=== PATIENT | male | born 1940 | race Two or more races ===

== ENCOUNTER 2022-05-04 22:29 | Inpatient (IN) | payer MEDICARE, BC ==
[~2022-05-04] VITALS: Ht 182.9 cm; Wt 70.3 kg
[2022-05-04] MEDS ORDERED: QUET50TA PO (22:43)
[2022-05-04] MEDS ORDERED: RIVA1PAT TD (22:43)
[2022-05-04] MEDS ORDERED: LEVO88TA5 PO (22:43)
--- NOTE | 2022-05-04 22:48 | NUR ---
Medically caleared by DEBBIE.
--- NOTE | 2022-05-04 23:05 | NUR ---
TRANSPORT TO THE [facility] BY [facility]IA [facility] WITH NO DISTRESS NOTED.
[2022-05-04 23:15] VITALS: BP 142/59
[2022-05-04 23:27] LABS: HEMATOCRIT 36.5 % (36.7-47.1); MEAN CORPUSCULAR HEMOGLOBIN 31.2 uug (23.8-33.4); MEAN CORPUSCULAR VOLUME 92.2 fL (73.0-96.2); PLATELET COUNT (AUTO) 174 K/uL (152-348)
[2022-05-04] MEDS ORDERED: MAGNESIUM HYDROXIDE 30 ML LIQUID UDC PO PRN (23:30)
[2022-05-04] MEDS ORDERED: ACETAMINOPHEN 325 MG TABLET PO PRN (23:30)
[2022-05-04] MEDS ORDERED: LORAZEPAM 0.5 MG TABLET PO PRN (23:30)
[2022-05-04] MEDS ORDERED: BLOOD SUGAR DIAGNOSTIC 1 EACH STRIP VI ONE (23:30)
[2022-05-04] MEDS ORDERED: MAG HYDROX/AL HYDROX/SIMETH 30 ML LIQUID UDC PO PRN (23:30)
[2022-05-04 23:38] LABS: ALANINE AMINOTRANSFERASE 16 U/L (16-63); ALKALINE PHOSPHATASE 69 U/L (50-136); ASPARTATE AMINOTRANSFERASE 15 U/L (15-37); BILIRUBIN,DIRECT 0.2 mg/dL (0.0-0.2); BILIRUBIN,TOTAL 0.7 mg/dL (0.2-1.0); CARBON DIOXIDE 26 mmol/L (21-32); CHLORIDE 109 mmol/L (98-107); CREATININE 1.6 mg/dL (0.6-1.3); GLUCOSE 96 mg/dL (74-106); POTASSIUM 3.4 mmol/L (3.5-5.1); TOTAL PROTEIN, SERUM 6.8 g/dL (6.4-8.2); UREA NITROGEN, BLOOD 25 mg/dL (7-18)
[2022-05-04 23:43] LABS: ETHANOL < 2 MG/DL (0-0)
[2022-05-04 23:44] LABS: ACETAMINOPHEN < 2.0 ug/mL (10-30)
[2022-05-04] MEDS: TEMAZEPAM 7.5 MG CAPSULE PO PRN (23:51)
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
--- NOTE | 2022-05-05 05:34 | NUR ---
GPS: Pt.is now awake,anxious and restless. Confused,disoriented and non-sensical. Reality re-orientation provided prn. Re-directed and re-assured frequently. Ativan 1mg PO given. Will monitor effectiveness of med. Safe environment provided.
[2022-05-05 07:12] LABS: *BILIRUBIN,URIN NEGATIVE (NEGATIVE); *BLOOD, URINE NEGATIVE (NEGATIVE); *CLARITY,URINE CLEAR (CLEAR); *COLOR,URINE YELLOW (YELLOW); *KETONES,URINE NEGATIVE (NEGATIVE); *UROBILINOGEN,URINE 0.2 E.U./dl (NORMAL); LEUKOCYTE ESTERASE ,URINE NEGATIVE (NEGATIVE); NITRITE, URINE NEGATIVE (NEGATIVE); UGLUCOSE NEGATIVE (NEGATIVE)
[2022-05-05] MEDS: LEVOTHYROXINE SODIUM 88 MCG TABLET PO SCH (07:21)
[2022-05-05 07:29] LABS: *AMPHETAMINE, URINE NEGATIVE (NEGATIVE); *CANNABINOID, URINE NEGATIVE (NEGATIVE); *COCCAINE, URINE NEGATIVE (NEGATIVE); *OPIATE, URINE NEGATIVE (NEGATIVE); *PHENCYCLIDINE SCREEN,URINE NEGATIVE (NEGATIVE)
[2022-05-05 07:36] LABS: ALANINE AMINOTRANSFERASE 20 U/L (16-63); ALKALINE PHOSPHATASE 71 U/L (50-136); ASPARTATE AMINOTRANSFERASE 17 U/L (15-37); BILIRUBIN,TOTAL 0.7 mg/dL (0.2-1.0); CARBON DIOXIDE 30 mmol/L (21-32); CHLORIDE 107 mmol/L (98-107); CREATININE 1.6 mg/dL (0.6-1.3); GLUCOSE 104 mg/dL (74-106); POTASSIUM 3.9 mmol/L (3.5-5.1); TOTAL PROTEIN, SERUM 7.1 g/dL (6.4-8.2); UREA NITROGEN, BLOOD 22 mg/dL (7-18)
[2022-05-05 07:53] VITALS: BP 158/85
[2022-05-05] MEDS: RIVASTIGMINE 4.6 MG PATCH TD SCH (08:16)
[2022-05-05] MEDS ORDERED: OLANZAPINE 10 MG VIAL IM ONE (10:45)
--- NOTE | 2022-05-05 11:00 | NUR ---
Patient became agitated, aggressive, threatening physical harm to self, others, and environment which could lead to injury, striking out at others. Patient tried to punch, bite, and push staff against the wall. Psychiatrist ordered Zyprexa 5 mg IM. Security was called and 4 people were necessary to administer medication, no force needed or applied, no injury. Reassurance given. Fall and safety precautions implemented.
[2022-05-05] MEDS: DIVALPROEX SPRINKLE 125 MG CAP.SPRINK PO SCH ×2 (12:42→17:04)
--- NOTE | 2022-05-05 13:59 | NUR ---
NOE initial discharge plan: Patient resides at [address] [place] [address]. [facility]E will continue to work with patient, family, and MD to ensure a safe and proper discharge plan.
--- NOTE | 2022-05-05 14:03 | NUR ---
Firearms Report: Quill Worker completed and submitted a [employer] firearms report for 5150 danger to self and danger to others certifications. A copy of report has been placed in patient chart.
--- NOTE | 2022-05-05 14:31 | NUR ---
Patient is confused, irritable, combative, uncooperative with nursing care, intrusive. Patient tries to elope from unit couple of times, tries to open the entrance and emergency doors. Patient tries to get in the nursing station, and does not follow directions. Patient strips his clothes and diapers off in the hallway. Patient gets aggressive when helped. Patient requires more than minimal assistance with ADL. Emotional support provided. Fall and safety precautions implemented.
[2022-05-05 17:06] VITALS: BP 103/59
[2022-05-05] MEDS: LORAZEPAM 1 MG TABLET PO PRN (19:43)
--- NOTE | 2022-05-05 20:30 | NUR ---
received patient in the hallway. He is noted pacing the hallway. he is A/O x 1 able to ambulate with steady gait. Patient noted forgetful. he is a poor historian. he constantly stand by the main double doors. he requires constant redirection and reality orientation. no aggressive or combative bx noted at this time, but he appears anxious. Ativan 1mg PO PRN was given for anxiety. he was also given PO fluids and snacks. ALL his needs are met. His V/S are stable, he is reassured for his safety. safety and fall precautions are in place. will continue to monitor.
[2022-05-05 20:45] VITALS: BP 126/73
[2022-05-05] MEDS ORDERED: OLANZAPINE 2.5 MG TABLET PO SCH (21:00)
--- NOTE | 2022-05-05 21:27 | NUR ---
patient noted calm and pleasant. Ativan PO PRN was effective. will continue to monitor.
[2022-05-06] MEDS: LEVOTHYROXINE SODIUM 88 MCG TABLET PO SCH (06:09)
[2022-05-06 07:37] VITALS: BP 134/74
[2022-05-06] MEDS: DIVALPROEX SPRINKLE 125 MG CAP.SPRINK PO SCH ×3 (08:40→16:34)
[2022-05-06] MEDS: RIVASTIGMINE 4.6 MG PATCH TD SCH (08:41)
[2022-05-06] MEDS: OLANZAPINE ZYDIS 5 MG TAB.RAPDIS PO PRN (08:53)
[2022-05-06] MEDS ORDERED: OLANZAPINE 10 MG VIAL IM ONE (09:30)
--- NOTE | 2022-05-06 10:15 | NUR ---
Patient became restless, anxious, agitated, threatening physical harm to self, others, and environment which could lead to injury, striking out at others. Psychiatrist ordered Zyprexa 5 mg IM. Security was called and 3 people were necessary to administer medication, no force needed. Emotional support provided. Fall and safety precautions implemented.
[2022-05-06] MEDS: OLANZAPINE 2.5 MG TABLET PO SCH ×2 (13:27→20:22)
--- NOTE | 2022-05-06 15:37 | NUR ---
Received patient awake in the hallway. 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 Patient is given Zyprexa 5 mg at 08:53 for agitation and anxiety, semi effective. Emotional support provided. Fall and safety precautions implemented.
[2022-05-06 16:00] VITALS: BP 105/75
[2022-05-06] MEDS: LORAZEPAM 1 MG TABLET PO PRN (19:37)
--- NOTE | 2022-05-06 19:40 | NUR ---
Received patient in his room in bed sleeping but easily arousable. once awake, he was noted confused. disoriented with disorganized speech and anxious. He is noted wondering around the unit. he required constant reality orientation. All his needs were met, (bathroom and PO fluids) Ativan 1mg PO PRN was given for anxiety. Will continue to monitor,
--- NOTE | 2022-05-06 20:30 | NUR ---
Patient noted calm and cooperative at this time. he A/O x 1 (name only) he is forgetful and a poor historian. he is unable to have a meaningful conversation with this commercial lines underwriter; his V/S are stable. he is reassured for his safety. safety and fall precautions are in place. he was given PO fluids and snacks. will continue to monitor.
[2022-05-06 20:39] VITALS: BP 158/59
[2022-05-06] MEDS: TEMAZEPAM 7.5 MG CAPSULE PO PRN (22:10)
[2022-05-07] MEDS: LEVOTHYROXINE SODIUM 88 MCG TABLET PO SCH ×2 (07:00→07:44)
[2022-05-07 07:40] VITALS: BP 127/64
[2022-05-07] MEDS: OLANZAPINE 2.5 MG TABLET PO SCH ×4 (08:35→20:42)
[2022-05-07] MEDS: RIVASTIGMINE 4.6 MG PATCH TD SCH (08:36)
[2022-05-07] MEDS: DIVALPROEX SPRINKLE 125 MG CAP.SPRINK PO SCH ×3 (08:36→16:10)
[2022-05-07] MEDS: LORAZEPAM 1 MG TABLET PO PRN ×2 (13:52→20:41)
--- NOTE | 2022-05-07 14:25 | NUR ---
Received patient up to kit-chair confused and disoriented talking non sense ,with poor insight and poor judgement .irritable and agitated when approach .prn Ativan 1 mg given for aggressive behavior .patient going to have MRI done tomorrow transportation and sitter arranged made aware,Elizabeth social media community manager approved.
[2022-05-07 16:58] VITALS: BP 135/74
[2022-05-07 19:47] VITALS: BP 106/60
--- NOTE | 2022-05-08 05:11 | NUR ---
Received patient in the kit chair. Agitated, restless and confused. The singer songwriter was unable to engage in any meaningful conversation and the patient is also unable to let his needs be known. Max assistance needed when ambulating on the unit. Gait unsteady and the patient is unable to follow the directions. Total assist with food and fluids provided. The patient is combative with the staff providing care. Incontinent of urine this PM. Safety Stratiges are in place and staff is continuing to monitor the patients needs and aggression.
[2022-05-08] MEDS: LEVOTHYROXINE SODIUM 88 MCG TABLET PO SCH (06:30)
[2022-05-08 07:38] LABS: HEMATOCRIT 36.3 % (36.7-47.1); MEAN CORPUSCULAR HEMOGLOBIN 31.6 uug (23.8-33.4); MEAN CORPUSCULAR VOLUME 91.1 fL (73.0-96.2); PLATELET COUNT (AUTO) 174 K/uL (152-348)
[2022-05-08 07:46] VITALS: BP 117/67
[2022-05-08] MEDS: OLANZAPINE 2.5 MG TABLET PO SCH ×2 (07:59→12:18)
[2022-05-08] MEDS: DIVALPROEX SPRINKLE 125 MG CAP.SPRINK PO SCH ×3 (07:59→17:20)
[2022-05-08] MEDS: LORAZEPAM 1 MG TABLET PO PRN ×2 (07:59→19:31)
[2022-05-08 08:00] LABS: ALANINE AMINOTRANSFERASE 26 U/L (16-63); ALKALINE PHOSPHATASE 69 U/L (50-136); ASPARTATE AMINOTRANSFERASE 45 U/L (15-37); BILIRUBIN,TOTAL 0.6 mg/dL (0.2-1.0); CARBON DIOXIDE 28 mmol/L (21-32); CHLORIDE 110 mmol/L (98-107); CREATININE 1.7 mg/dL (0.6-1.3); GLUCOSE 93 mg/dL (74-106); POTASSIUM 3.5 mmol/L (3.5-5.1); TOTAL PROTEIN, SERUM 6.9 g/dL (6.4-8.2); UREA NITROGEN, BLOOD 26 mg/dL (7-18)
[2022-05-08] MEDS: RIVASTIGMINE 4.6 MG PATCH TD SCH (09:10)
[2022-05-08] MEDS: OLANZAPINE ZYDIS 5 MG TAB.RAPDIS PO PRN ×2 (12:18→19:31)
[2022-05-08] MEDS ORDERED: OLANZAPINE 10 MG VIAL IM ONE (13:45)
--- NOTE | 2022-05-08 14:16 | NUR ---
Emergency IM: Patient became agitated, aggressive, threatening physical harm to self, others, and environment which could lead to injury, striking out at others. Patient tried to punch, bite, and push staff against the wall. ordered Zyprexa 5 mg IM. Security was called and 2 people were necessary to administer medication , no force needed or applied no injury noted.
[2022-05-08 16:30] VITALS: BP 124/70
[2022-05-08] MEDS: OLANZAPINE 5 MG TABLET PO SCH ×2 (17:20→21:00)
[2022-05-08] MEDS: TEMAZEPAM 7.5 MG CAPSULE PO PRN (20:55)
--- NOTE | 2022-05-09 03:48 | NUR ---
Received patient at the start of the shift agitated, combative, grabbing at people who walked by. The patient was restless and is unable to communicate with staff providing care due to confusion and unclear speech. Multiple attempts were made to redirect and reorient this patient. Food and fluids were met with resistance. The patient was assisted with ambulating and using the bathroom, this took multiple staff members. Safety Stratiges are in place ,as well as an ongoing efforts to meet the needs of this patient.
[2022-05-09] MEDS: LEVOTHYROXINE SODIUM 88 MCG TABLET PO SCH (06:18)
[2022-05-09 08:00] VITALS: BP 133/65
[2022-05-09] MEDS: DIVALPROEX SPRINKLE 125 MG CAP.SPRINK PO SCH ×3 (08:18→17:00)
[2022-05-09] MEDS: OLANZAPINE 5 MG TABLET PO SCH ×4 (08:19→20:36)
[2022-05-09] MEDS: RIVASTIGMINE 4.6 MG PATCH TD SCH (08:35)
[2022-05-09] MEDS: LORAZEPAM 0.5 MG TABLET PO SCH ×2 (12:21→17:00)
[2022-05-09] MEDS: ENSURE ENLIVE (VAN) 240 ML LIQUID PO SCH ×2 (12:45→17:00)
[2022-05-09 16:04] VITALS: BP 149/75
[2022-05-09] MEDS: LORAZEPAM 1 MG TABLET PO PRN (19:43)
--- NOTE | 2022-05-09 19:45 | NUR ---
Received patient sitting in a julienne chair near the nursing station. He is noted confused and unable to have a meaningful conversation with this greeting card writer. he was noted restless and agitated. He was helped to the bathroom and all his need were met. pt is hard to redirect. He was given Ativan 1mg PO prn. safety and fall precautions continue in place. will cojtinue to monitor.
[2022-05-09 20:19] VITALS: BP 134/81
--- NOTE | 2022-05-09 21:00 | NUR ---
patient noted calm at this time. His V/S are stable. He refused snacks but he had PO fluids. He initially refused Zyprexa and spitted out the pill but on a second attempt he was able to take it with some juice. will continue with safety and fall precautions.
[2022-05-09] MEDS: TEMAZEPAM 7.5 MG CAPSULE PO PRN (21:56)
[2022-05-10] MEDS: LEVOTHYROXINE SODIUM 88 MCG TABLET PO SCH (07:00)
[2022-05-10] MEDS: OLANZAPINE 5 MG TABLET PO SCH ×4 (08:24→21:00)
[2022-05-10] MEDS: LORAZEPAM 0.5 MG TABLET PO SCH (08:24)
[2022-05-10] MEDS: DIVALPROEX SPRINKLE 125 MG CAP.SPRINK PO SCH ×3 (08:25→17:12)
[2022-05-10 08:40] VITALS: BP 134/65
[2022-05-10] MEDS: ENSURE ENLIVE (VAN) 240 ML LIQUID PO SCH ×3 (08:46→17:14)
[2022-05-10] MEDS: RIVASTIGMINE 4.6 MG PATCH TD SCH (08:48)
[2022-05-10] MEDS: REMEDY ESSENTIAL ZINC PASTE 113 GM TOP SCH ×2 (08:53→21:00)
[2022-05-10 11:06] LABS: HEMATOCRIT 36.9 % (36.7-47.1); MEAN CORPUSCULAR HEMOGLOBIN 31.4 uug (23.8-33.4); PLATELET COUNT (AUTO) 184 K/uL (152-348)
[2022-05-10 11:33] LABS: ALANINE AMINOTRANSFERASE 42 U/L (16-63); ALKALINE PHOSPHATASE 70 U/L (50-136); ASPARTATE AMINOTRANSFERASE 56 U/L (15-37); BILIRUBIN,TOTAL 0.7 mg/dL (0.2-1.0); CARBON DIOXIDE 28 mmol/L (21-32); CHLORIDE 113 mmol/L (98-107); CREATININE 2.1 mg/dL (0.6-1.3); GLUCOSE 98 mg/dL (74-106); POTASSIUM 4.4 mmol/L (3.5-5.1); TOTAL PROTEIN, SERUM 7.3 g/dL (6.4-8.2); UREA NITROGEN, BLOOD 41 mg/dL (7-18)
[2022-05-10] MEDS: LORAZEPAM 1 MG TABLET PO SCH ×2 (12:26→17:12)
[2022-05-10] MEDS ORDERED: LORAZEPAM 0.5 MG TABLET PO SCH (13:00)
--- NOTE | 2022-05-10 15:00 | NUR ---
lab result Dr. lilia chandler.
[2022-05-10 16:12] VITALS: BP 136/83
--- NOTE | 2022-05-10 20:30 | NUR ---
Received patient in the hallway sitting in a julienne chair near the nursing station for safety. He is noted confused. He was observed restless, disrobing and fidgeting. He is hard to redirect, unable to follow directions and he is unable to have a meaningful conversation with this medical underwriter. Patient is refusing PO fluids and snacks. His v/s are stable. safety and fall precautions are in place. will continue to monitor.
[2022-05-10 21:28] VITALS: BP 136/76
--- NOTE | 2022-05-10 22:00 | NUR ---
Patient refused Zyprexa PO QHS. he continue refusing PO fluids and snacks. he continue disrobing and fidgeting. He is unable to follow direction. All his needs are met. Attempted to take pt to the toilet to collect urine but he refused, he is combative and resistant to care. He requires two to three staff to provide ADLs and care. Will continue to monitor closely.
--- NOTE | 2022-05-11 01:00 | NUR ---
Attempted to obtained urine but patient refused to go the bathroom, he became combative and resistant to care; beside, his diaper was already wet. Will continue to monitor.
[2022-05-11] MEDS: LEVOTHYROXINE SODIUM 88 MCG TABLET PO SCH (06:42)
[2022-05-11 06:54] LABS: HEMATOCRIT 40.8 % (36.7-47.1); MEAN CORPUSCULAR HEMOGLOBIN 30.9 uug (23.8-33.4); MEAN CORPUSCULAR VOLUME 93.9 fL (73.0-96.2); PLATELET COUNT (AUTO) 158 K/uL (152-348)
[2022-05-11 07:09] LABS: ALANINE AMINOTRANSFERASE 42 U/L (16-63); ALKALINE PHOSPHATASE 70 U/L (50-136); ASPARTATE AMINOTRANSFERASE 48 U/L (15-37); BILIRUBIN,TOTAL 0.7 mg/dL (0.2-1.0); CARBON DIOXIDE 26 mmol/L (21-32); CHLORIDE 117 mmol/L (98-107); CREATININE 2.2 mg/dL (0.6-1.3); GLUCOSE 93 mg/dL (74-106); MAGNESIUM 2.5 mg/dL (1.8-2.4); POTASSIUM 4.5 mmol/L (3.5-5.1); TOTAL PROTEIN, SERUM 7.3 g/dL (6.4-8.2); UREA NITROGEN, BLOOD 50 mg/dL (7-18)
[2022-05-11 07:30] VITALS: BP 138/107
[2022-05-11] MEDS: OLANZAPINE 5 MG TABLET PO SCH (08:16)
[2022-05-11] MEDS: DIVALPROEX SPRINKLE 125 MG CAP.SPRINK PO SCH (08:16)
[2022-05-11] MEDS: RIVASTIGMINE 4.6 MG PATCH TD SCH (08:16)
[2022-05-11] MEDS: REMEDY ESSENTIAL ZINC PASTE 113 GM TOP SCH (08:17)
[2022-05-11] MEDS: ENSURE ENLIVE (VAN) 240 ML LIQUID PO SCH ×2 (08:17→12:54)
[2022-05-11] MEDS: LORAZEPAM 1 MG TABLET PO SCH ×2 (08:17→12:54)
[2022-05-11] MEDS ORDERED: OXCARBAZEPINE 300 MG TABLET PO SCH (10:00)
[2022-05-11] MEDS ORDERED: risperiDONE 1 MG TABLET PO SCH (13:00)
[2022-05-11] MEDS ORDERED: BENZTROPINE MESYLATE 0.5 MG TABLET PO SCH (13:00)
--- NOTE | 2022-05-11 13:31 | NUR ---
Received orders from Dr. Gamboa and Dr. Katz to discharge this patient to [facility] Third floor due to dehydration. 5250 hold status was discontinued. Patient belongings and valuables were returned to patient. Patient denies SI/HI Ah/VH, SOB, pain or any discomfort. Reassurance given. Fall and safety precautions implemented.
--- NOTE | 2022-05-11 13:31 | NUR ---
Treatment Plan Patient unable to sign treatment plan due to disorganized thought process.
[2022-05-11] MEDS ORDERED: ACET-2154 PO (14:38)
[2022-05-11] MEDS ORDERED: LORA-259 PO ×2 (14:38→14:40)
[2022-05-11] MEDS ORDERED: BENZ0.5T43 PO (14:38)
[2022-05-11] MEDS ORDERED: OXCA300T4 PO (14:38)
[2022-05-11] MEDS ORDERED: OLAN5TAB6 PO (14:38)
[2022-05-11] MEDS ORDERED: TEMA7.5C PO (14:38)
[2022-05-11] MEDS ORDERED: MAGN400O6 PO (14:38)
[2022-05-11] MEDS ORDERED: RISP1TAB7 PO (14:38)
[2022-05-11] MEDS ORDERED: LORA0.5T48 PO (14:38)
== END 2022-05-11 13:30 | disposition short-term general hospital (02) | DRG 885 ==
LOC: ER 22:29 → GPS 22:57
PROVIDERS: ADMIT Psychiatry & Neurology Psychosomatic Medicine; ATTEND Nurse Practitioner Acute Care
DX: F31.9 Bipolar disorder, unspecified (principal); N17.0 Acute kidney failure with tubular necrosis; N18.9 Chronic kidney disease, unspecified; G93.41 Metabolic encephalopathy; F03.918 Unspecified dementia, unspecified severity, with other behavioral disturbance; F03.92 Unspecified dementia, unspecified severity, with psychotic disturbance; E03.9 Hypothyroidism, unspecified; E87.6 Hypokalemia; I12.9 Hypertensive chronic kidney disease with stage 1 through stage 4 chronic kidney disease, or unspecified chronic kidney disease; D63.1 Anemia in chronic kidney disease; F09 Unspecified mental disorder due to known physiological condition; M89.8X9 Other specified disorders of bone, unspecified site
CPT/HCPCS: 36415; 70551; 80164; 83735; 83935; 84100; 84300; 85025; 93005; A4663; G0480; J2358

== ENCOUNTER 2022-05-11 13:57 | Inpatient (IN) | payer MEDICARE, BC ==
[~2022-05-11] VITALS: Ht 182.9 cm; Wt 70.3 kg
[~2022-05-11 13:57] MED LIST: LEVO88TA5 PO; RIVA1PAT TD
[2022-05-11 14:29] VITALS: BP 144/72
[2022-05-11] MEDS ORDERED: BENZ0.5T43 PO (14:38)
[2022-05-11] MEDS ORDERED: RISP1TAB7 PO (14:38)
[2022-05-11] MEDS ORDERED: MAGN400O6 PO (14:38)
[2022-05-11] MEDS ORDERED: OXCA300T4 PO (14:38)
[2022-05-11] MEDS ORDERED: LORA0.5T48 PO (14:38)
[2022-05-11] MEDS ORDERED: ACET-2154 PO (14:38)
[2022-05-11] MEDS ORDERED: LORA-259 PO ×2 (14:38→14:40)
[2022-05-11] MEDS ORDERED: TEMA7.5C PO (14:38)
[2022-05-11] MEDS ORDERED: OLAN5TAB6 PO (14:38)
[2022-05-11 16:40] VITALS: BP 97/57
[2022-05-11] MEDS: NYSTATIN SUSPENSION 5 ML LIQUID UDC PO SCH ×2 (17:18→21:16)
[2022-05-11] MEDS: LORAZEPAM 2 MG/1 ML VIAL IV PRN (18:59)
[2022-05-11] MEDS ORDERED: IV D5 1/2 NS 1000 ML 1,000 ML IV PRN ×2 (19:45→21:30)
[2022-05-11 20:00] VITALS: BP 114/65
[2022-05-11] MEDS: RIVASTIGMINE 4.6 MG PATCH TD SCH (21:16)
[2022-05-11] MEDS: REMEDY ESSENTIAL ZINC PASTE 113 GM TOP SCH (21:16)
[2022-05-11] MEDS ORDERED: BISACODYL 10 MG SUPP.RECT RC PRN (21:30)
[2022-05-11] MEDS ORDERED: MORPHINE SULFATE 2 MG/1 ML DISP.SYRIN IV PRN (21:30)
[2022-05-11] MEDS ORDERED: ONDANSETRON 4 MG/2 ML VIAL IV PRN (21:30)
[2022-05-11] MEDS ORDERED: ACETAMINOPHEN 650 MG SUPP.RECT RC PRN (21:30)
[2022-05-12] VITALS: BP 100/64
[2022-05-12 04:00] VITALS: BP 144/69
[2022-05-12 07:28] LABS: HEMATOCRIT 38.8 % (36.7-47.1); MEAN CORPUSCULAR HEMOGLOBIN 30.7 uug (23.8-33.4); MEAN CORPUSCULAR VOLUME 93.6 fL (73.0-96.2); PLATELET COUNT (AUTO) 161 K/uL (152-348)
[2022-05-12 08:08] LABS: ALANINE AMINOTRANSFERASE 42 U/L (16-63); ALKALINE PHOSPHATASE 65 U/L (50-136); ASPARTATE AMINOTRANSFERASE 44 U/L (15-37); BILIRUBIN,TOTAL 0.8 mg/dL (0.2-1.0); CARBON DIOXIDE 29 mmol/L (21-32); CHLORIDE 118 mmol/L (98-107); CREATINE KINASE, TOTAL 403 U/L (39-308); CREATININE 2.8 mg/dL (0.6-1.3); GLUCOSE 111 mg/dL (74-106); MAGNESIUM 2.5 mg/dL (1.8-2.4); PHOSPHOROUS 3.9 mg/dL (2.5-4.9); POTASSIUM 4.1 mmol/L (3.5-5.1); TOTAL PROTEIN, SERUM 7.2 g/dL (6.4-8.2); UREA NITROGEN, BLOOD 64 mg/dL (7-18)
[2022-05-12] MEDS: PANTOPRAZOLE SODIUM 40 MG VIAL IV SCH (09:44)
[2022-05-12] MEDS: NYSTATIN SUSPENSION 5 ML LIQUID UDC PO SCH ×4 (09:44→21:01)
[2022-05-12] MEDS: RIVASTIGMINE 4.6 MG PATCH TD SCH (09:45)
[2022-05-12] MEDS: REMEDY ESSENTIAL ZINC PASTE 113 GM TOP SCH ×2 (09:45→21:02)
[2022-05-12 11:34] VITALS: BP 154/70
[2022-05-12 16:00] VITALS: BP 142/78
[2022-05-12 20:00] VITALS: BP 135/81
[2022-05-12] MEDS: IV D5W 1000ML 1,000 ML IV PRN (21:42)
[2022-05-12] MEDS: LORAZEPAM 2 MG/1 ML VIAL IV PRN (22:39)
[2022-05-13] VITALS: BP 124/62
[2022-05-13 02:05] LABS: *BILIRUBIN,URIN NEGATIVE (NEGATIVE); *CLARITY,URINE CLEAR (CLEAR); *COLOR,URINE YELLOW (YELLOW); *KETONES,URINE NEGATIVE (NEGATIVE); *UROBILINOGEN,URINE 0.2 E.U./dl (NORMAL); LEUKOCYTE ESTERASE ,URINE NEGATIVE (NEGATIVE); NITRITE, URINE NEGATIVE (NEGATIVE); PH,URINE 5.5 (5.0-8.0); UGLUCOSE NEGATIVE (NEGATIVE)
[2022-05-13 02:06] LABS: *BLOOD, URINE NEGATIVE (NEGATIVE)
[2022-05-13 02:09] LABS: *URINE TOTAL PROTEIN RANDOM < 6.0 mg/dL (<150/24HR)
[2022-05-13 02:12] LABS: *CREATININE,URINE < 13.0 mg/dL (30-125)
[2022-05-13 04:00] VITALS: BP 135/80
[2022-05-13 06:19] LABS: HEMATOCRIT 35.7 % (36.7-47.1); MEAN CORPUSCULAR HEMOGLOBIN 30.8 uug (23.8-33.4); PLATELET COUNT (AUTO) 122 K/uL (152-348)
[2022-05-13 06:36] LABS: ALANINE AMINOTRANSFERASE 49 U/L (16-63); ALKALINE PHOSPHATASE 53 U/L (50-136); ASPARTATE AMINOTRANSFERASE 51 U/L (15-37); BILIRUBIN,TOTAL 0.7 mg/dL (0.2-1.0); CARBON DIOXIDE 30 mmol/L (21-32); CHLORIDE 116 mmol/L (98-107); GLUCOSE 107 mg/dL (74-106); MAGNESIUM 2.3 mg/dL (1.8-2.4); PHOSPHOROUS 3.4 mg/dL (2.5-4.9); POTASSIUM 3.5 mmol/L (3.5-5.1); TOTAL PROTEIN, SERUM 6.1 g/dL (6.4-8.2); UREA NITROGEN, BLOOD 42 mg/dL (7-18)
[2022-05-13] MEDS: RIVASTIGMINE 4.6 MG PATCH TD SCH (09:03)
[2022-05-13] MEDS: NYSTATIN SUSPENSION 5 ML LIQUID UDC PO SCH ×4 (09:03→21:16)
[2022-05-13] MEDS: REMEDY ESSENTIAL ZINC PASTE 113 GM TOP SCH ×2 (09:03→21:40)
[2022-05-13] MEDS: PANTOPRAZOLE SODIUM 40 MG VIAL IV SCH (09:03)
[2022-05-13] MEDS: IV D5W 1000ML 1,000 ML IV PRN (09:56)
[2022-05-13 11:07] LABS: A/G RATIO 0.9 (0.7-1.7); ALBUMIN 3.2 g/dL (2.9-4.4); ALPHA-1-GLOBULIN 0.3 g/dL (0.0-0.4); ALPHA-2-GLOBULIN 0.7 g/dL (0.4-1.0); BETA GLOBULIN 0.9 g/dL (0.7-1.3); GAMMA GLOBULIN 1.5 g/dL (0.4-1.8); GLOBULIN, TOTAL 3.4 g/dL (2.2-3.9); M-SPIKE Not Observed g/dL (Not Observed)
[2022-05-13 11:50] VITALS: BP 149/70
[2022-05-13 12:00] VITALS: BP 140/70
[2022-05-13] MEDS ORDERED: PIPERACILLIN/TAZO 2.25 G in IV DEXTROSE 5% 50 ML IV SCH (13:00)
[2022-05-13] MEDS: PIPERACILLIN SODIUM/TAZOBACTAM 3.375 G in IV DEXTROSE 5% 100 ML IV SCH (13:49)
[2022-05-13 15:22] VITALS: BP 133/77
[2022-05-13] MEDS: VANCOMYCIN IV 750 MG in IV DEXTROSE 5% 250 ML IV SCH (18:02)
[2022-05-13 20:00] VITALS: BP_SYST 144; BP_SYST 149; BP_DIAS 74
[2022-05-13] MEDS ORDERED: VANCOMYCIN IV 750 MG in IV DEXTROSE 5% 250 ML IV SCH (20:00)
[2022-05-14] VITALS: BP 141/75
[2022-05-14] MEDS: PIPERACILLIN SODIUM/TAZOBACTAM 3.375 G in IV DEXTROSE 5% 100 ML IV SCH ×3 (02:04→20:56)
[2022-05-14 04:00] VITALS: BP 136/73
[2022-05-14] MEDS: IV D5W 1000ML 1,000 ML IV PRN ×2 (05:40→19:49)
[2022-05-14 07:02] LABS: HEMATOCRIT 35.9 % (36.7-47.1); MEAN CORPUSCULAR HEMOGLOBIN 31.3 uug (23.8-33.4); MEAN CORPUSCULAR VOLUME 93.1 fL (73.0-96.2); PLATELET COUNT (AUTO) 130 K/uL (152-348)
[2022-05-14 07:15] LABS: NEUTROPHILS % (MANUAL) 0 % (42-75)
[2022-05-14 07:21] LABS: CARBON DIOXIDE 31 mmol/L (21-32); CHLORIDE 112 mmol/L (98-107); CREATININE 1.8 mg/dL (0.6-1.3); GLUCOSE 117 mg/dL (74-106); POTASSIUM 3.4 mmol/L (3.5-5.1); UREA NITROGEN, BLOOD 30 mg/dL (7-18)
[2022-05-14] MEDS: RIVASTIGMINE 4.6 MG PATCH TD SCH (09:00)
[2022-05-14] MEDS: REMEDY ESSENTIAL ZINC PASTE 113 GM TOP SCH ×2 (09:00→20:56)
[2022-05-14] MEDS: ASPIRIN 81 MG TAB.CHEW PO SCH (09:00)
[2022-05-14] MEDS: METOPROLOL SUCCINATE XL 25 MG TAB.SR.24H PO SCH (09:00)
[2022-05-14] MEDS ORDERED: POTASSIUM CHLORIDE 50 ML IV SCH (10:30)
[2022-05-14] MEDS: NYSTATIN SUSPENSION 5 ML LIQUID UDC PO SCH ×4 (10:37→20:58)
[2022-05-14] MEDS: PANTOPRAZOLE SODIUM 40 MG VIAL IV SCH (10:37)
[2022-05-14 11:25] VITALS: BP 134/75
[2022-05-14 15:30] VITALS: BP 150/85
[2022-05-14] MEDS: VANCOMYCIN IV 750 MG in IV DEXTROSE 5% 250 ML IV SCH (19:49)
[2022-05-14 20:00] VITALS: BP 123/78
[2022-05-14] MEDS: ATORVASTATIN 40 MG TABLET PO SCH (20:56)
[2022-05-15] VITALS: BP 140/80
[2022-05-15] MEDS: LORAZEPAM 2 MG/1 ML VIAL IV PRN (00:38)
[2022-05-15] MEDS: PIPERACILLIN SODIUM/TAZOBACTAM 3.375 G in IV DEXTROSE 5% 100 ML IV SCH ×3 (03:14→17:26)
[2022-05-15 05:09] VITALS: BP 160/62
[2022-05-15 06:30] LABS: HEMATOCRIT 38.6 % (36.7-47.1); MEAN CORPUSCULAR HEMOGLOBIN 30.4 uug (23.8-33.4); MEAN CORPUSCULAR VOLUME 92.2 fL (73.0-96.2); PLATELET COUNT (AUTO) 133 K/uL (152-348)
[2022-05-15 06:52] LABS: ALANINE AMINOTRANSFERASE 41 U/L (16-63); ALKALINE PHOSPHATASE 52 U/L (50-136); ASPARTATE AMINOTRANSFERASE 36 U/L (15-37); BILIRUBIN,TOTAL 0.8 mg/dL (0.2-1.0); CARBON DIOXIDE 32 mmol/L (21-32); CHLORIDE 107 mmol/L (98-107); CREATININE 1.8 mg/dL (0.6-1.3); GLUCOSE 121 mg/dL (74-106); MAGNESIUM 1.9 mg/dL (1.8-2.4); PHOSPHOROUS 2.8 mg/dL (2.5-4.9); POTASSIUM 3.2 mmol/L (3.5-5.1); TOTAL PROTEIN, SERUM 6.2 g/dL (6.4-8.2); UREA NITROGEN, BLOOD 22 mg/dL (7-18)
[2022-05-15 08:00] VITALS: BP 128/65
[2022-05-15] MEDS: PANTOPRAZOLE SODIUM 40 MG VIAL IV SCH (09:00)
[2022-05-15] MEDS: RIVASTIGMINE 4.6 MG PATCH TD SCH (09:00)
[2022-05-15] MEDS: NYSTATIN SUSPENSION 5 ML LIQUID UDC PO SCH ×4 (09:00→20:53)
[2022-05-15] MEDS: ASPIRIN 81 MG TAB.CHEW PO SCH (09:00)
[2022-05-15] MEDS: METOPROLOL SUCCINATE XL 25 MG TAB.SR.24H PO SCH (09:00)
[2022-05-15] MEDS: REMEDY ESSENTIAL ZINC PASTE 113 GM TOP SCH ×2 (09:00→20:53)
[2022-05-15] MEDS: POTASSIUM CHLORIDE 50 ML IV SCH ×3 (10:45→13:28)
[2022-05-15 12:00] VITALS: BP 126/68
[2022-05-15 16:00] VITALS: BP 135/65
[2022-05-15] MEDS: VANCOMYCIN IV 750 MG in IV DEXTROSE 5% 250 ML IV SCH (17:26)
[2022-05-15 20:24] VITALS: BP 141/73
[2022-05-15] MEDS: ATORVASTATIN 40 MG TABLET PO SCH (20:53)
[2022-05-16] VITALS: BP 148/72
[2022-05-16] MEDS: LORAZEPAM 2 MG/1 ML VIAL IV PRN ×2 (00:27→17:44)
[2022-05-16] MEDS: PIPERACILLIN SODIUM/TAZOBACTAM 3.375 G in IV DEXTROSE 5% 100 ML IV SCH ×3 (02:16→17:36)
[2022-05-16] MEDS: IV D5W 1000ML 1,000 ML IV PRN ×2 (02:27→15:10)
[2022-05-16 04:37] VITALS: BP 140/70
[2022-05-16 06:17] LABS: HEMATOCRIT 38.4 % (36.7-47.1); MEAN CORPUSCULAR HEMOGLOBIN 30.9 uug (23.8-33.4); PLATELET COUNT (AUTO) 153 K/uL (152-348)
[2022-05-16 06:42] LABS: CARBON DIOXIDE 30 mmol/L (21-32); CHLORIDE 107 mmol/L (98-107); CREATININE 1.7 mg/dL (0.6-1.3); GLUCOSE 111 mg/dL (74-106); MAGNESIUM 1.9 mg/dL (1.8-2.4); PHOSPHOROUS 2.6 mg/dL (2.5-4.9); POTASSIUM 3.5 mmol/L (3.5-5.1); UREA NITROGEN, BLOOD 17 mg/dL (7-18)
[2022-05-16] MEDS: PANTOPRAZOLE SODIUM 40 MG VIAL IV SCH (08:29)
[2022-05-16] MEDS: REMEDY ESSENTIAL ZINC PASTE 113 GM TOP SCH ×2 (08:30→20:54)
[2022-05-16] MEDS: METOPROLOL SUCCINATE XL 25 MG TAB.SR.24H PO SCH (08:30)
[2022-05-16] MEDS: ASPIRIN 81 MG TAB.CHEW PO SCH (08:30)
[2022-05-16] MEDS: RIVASTIGMINE 4.6 MG PATCH TD SCH (08:40)
[2022-05-16] MEDS: NYSTATIN SUSPENSION 5 ML LIQUID UDC PO SCH ×4 (08:47→20:52)
[2022-05-16 12:00] VITALS: BP 152/76
[2022-05-16 16:29] VITALS: BP 134/75
[2022-05-16] MEDS: VANCOMYCIN IV 750 MG in IV DEXTROSE 5% 250 ML IV SCH (18:29)
[2022-05-16 20:00] VITALS: BP 151/81
[2022-05-16] MEDS: ATORVASTATIN 40 MG TABLET PO SCH ×3 (20:52→21:00)
[2022-05-17] MEDS: PIPERACILLIN SODIUM/TAZOBACTAM 3.375 G in IV DEXTROSE 5% 100 ML IV SCH ×3 (02:03→17:15)
[2022-05-17 04:00] VITALS: BP 144/85
[2022-05-17] MEDS: IV D5W 1000ML 1,000 ML IV PRN (05:16)
[2022-05-17 06:28] LABS: HEMATOCRIT 38.8 % (36.7-47.1); MEAN CORPUSCULAR HEMOGLOBIN 30.4 uug (23.8-33.4); MEAN CORPUSCULAR VOLUME 90.2 fL (73.0-96.2); PLATELET COUNT (AUTO) 167 K/uL (152-348)
[2022-05-17 06:38] LABS: CARBON DIOXIDE 30 mmol/L (21-32); CHLORIDE 104 mmol/L (98-107); CREATININE 1.8 mg/dL (0.6-1.3); GLUCOSE 106 mg/dL (74-106); MAGNESIUM 1.8 mg/dL (1.8-2.4); PHOSPHOROUS 2.5 mg/dL (2.5-4.9); POTASSIUM 3.4 mmol/L (3.5-5.1); UREA NITROGEN, BLOOD 15 mg/dL (7-18)
[2022-05-17] MEDS: METOPROLOL SUCCINATE XL 25 MG TAB.SR.24H PO SCH (09:00)
[2022-05-17] MEDS: ASPIRIN 81 MG TAB.CHEW PO SCH (09:00)
[2022-05-17] MEDS: NYSTATIN SUSPENSION 5 ML LIQUID UDC PO SCH ×5 (09:00→20:29)
[2022-05-17] MEDS: REMEDY ESSENTIAL ZINC PASTE 113 GM TOP SCH ×2 (09:00→20:29)
[2022-05-17] MEDS: POTASSIUM CHLORIDE 50 ML IV SCH ×2 (10:23→11:40)
[2022-05-17] MEDS: RIVASTIGMINE 4.6 MG PATCH TD SCH (10:30)
[2022-05-17] MEDS: PANTOPRAZOLE SODIUM 40 MG VIAL IV SCH (10:31)
[2022-05-17 13:25] VITALS: BP 140/74
[2022-05-17 16:00] VITALS: BP 110/74
[2022-05-17] MEDS: VANCOMYCIN IV 750 MG in IV DEXTROSE 5% 250 ML IV SCH ×2 (18:30→20:29)
[2022-05-17] MEDS: LORAZEPAM 2 MG/1 ML VIAL IV PRN (18:42)
[2022-05-17 20:00] VITALS: BP 147/65
[2022-05-17] MEDS: ATORVASTATIN 40 MG TABLET PO SCH (20:29)
[2022-05-18 04:00] VITALS: BP 114/81
[2022-05-18] MEDS ORDERED: METO-356 PO (08:22)
[2022-05-18] MEDS ORDERED: ATOR40TA PO (08:22)
[2022-05-18] MEDS ORDERED: ASPI81TA31 PO (08:22)
== END 2022-05-18 09:05 | disposition hospice, home (50) | DRG 682 ==
LOC: MEDSURG3 13:57 → TELE3 14:18 → MEDSURG3 05-17 11:20
PROVIDERS: ADMIT Internal Medicine; ATTEND Nurse Practitioner Acute Care
PROC: 05H633Z Insertion of Infusion Device into Left Subclavian Vein, Percutaneous Approach (ICD-10-PCS; principal; 2022-05-11)
PROC: B547ZZA Ultrasonography of Left Subclavian Vein, Guidance (ICD-10-PCS; 2022-05-11)
DX: N17.0 Acute kidney failure with tubular necrosis (principal); G92.8 Other toxic encephalopathy; E87.0 Hyperosmolality and hypernatremia; B37.0 Candidal stomatitis; D68.69 Other thrombophilia; F02.82 Dementia in other diseases classified elsewhere, unspecified severity, with psychotic disturbance; R47.01 Aphasia; E86.0 Dehydration; E03.9 Hypothyroidism, unspecified; E87.6 Hypokalemia; G20 Parkinson's disease; I25.5 Ischemic cardiomyopathy; I25.10 Atherosclerotic heart disease of native coronary artery without angina pectoris; I25.2 Old myocardial infarction; L03.031 Cellulitis of right toe; I12.9 Hypertensive chronic kidney disease with stage 1 through stage 4 chronic kidney disease, or unspecified chronic kidney disease; N18.2 Chronic kidney disease, stage 2 (mild); R74.01 Elevation of levels of liver transaminase levels; Z74.09 Other reduced mobility; E86.1 Hypovolemia; D63.1 Anemia in chronic kidney disease; F09 Unspecified mental disorder due to known physiological condition; F31.9 Bipolar disorder, unspecified; M10.9 Gout, unspecified
CPT/HCPCS: 36415; 36569; 70030-TC; 71045; 74018; 83605; 83735; 83970; 84100; 84155; 84156; 84165; 84300; 84443; 84484; 84550; 85025; 87040; 93307; A4663; A6213; C1758; C9113; G0378; J2060; J2543; J3370; J3480; J7042; J7050; J7070